=== PATIENT | male | born 1995 | race Caucasian/White ===

== ENCOUNTER 2019-12-20 07:31 | Emergency (ER) | payer SELFPAY ==
[~2019-12-20] VITALS: Ht 177.8 cm; Wt 70.3 kg
[~2019-12-20 07:31] MED LIST: HYDACE5 PO; Keflex500 MG PO; Norco 5-325 Ta1 EACH PO; Percocet 5-3251 EACH PO; RXHYDACE PO; Zofran Odt4 MG SL
[2019-12-20] MEDS ORDERED: PRED20 PO (08:06)
[2019-12-20] MEDS ORDERED: ALBU2.5V5 INH (08:06)
[2019-12-20] MEDS ORDERED: ALBU90OI INH (08:06)
[2019-12-20] MEDS ORDERED: IBUP800 PO (08:26)
[2019-12-20] MEDS ORDERED: CEPH500 PO (08:27)
== END 2019-12-20 08:51 | disposition home or self-care (01) ==
LOC: ER 07:31
DX: M67.432 Ganglion, left wrist (principal); J45.901 Unspecified asthma with (acute) exacerbation
CPT/HCPCS: 73070; 99283-25

== ENCOUNTER 2019-12-29 07:03 | Emergency (ER) | payer BC ==
[~2019-12-29] VITALS: Ht 177.8 cm; Wt 72.6 kg
[~2019-12-29 07:03] MED LIST changes: +ALBU2.5V5 INH; +ALBU90OI INH; +CEPH500 PO; +IBUP800 PO; +PRED20 PO
[2019-12-29] MEDS ORDERED: IBU600 M1 PO (07:48)
== END 2019-12-29 07:56 | disposition home or self-care (01) ==
LOC: ER 07:03
DX: M77.9 Enthesopathy, unspecified (principal); J45.909 Unspecified asthma, uncomplicated; F41.9 Anxiety disorder, unspecified; F17.200 Nicotine dependence, unspecified, uncomplicated; Z79.899 Other long term (current) drug therapy
CPT/HCPCS: 73090; 99283-25

== ENCOUNTER 2024-04-18 21:15 | Emergency (ER) | payer OTHER ==
[~2024-04-18] VITALS: Ht 177.8 cm; Wt 77.1 kg
[~2024-04-18 21:15] MED LIST changes: +AMOCLA875 PO; +IBU600 M1 PO
[2024-04-18 23:33] VITALS: BP 150/85
== END 2024-04-18 23:37 | disposition home or self-care (01) ==
LOC: ER 21:15
DX: M79.602 Pain in left arm (principal); W50.0XXA Accidental hit or strike by another person, initial encounter; J45.909 Unspecified asthma, uncomplicated; F17.210 Nicotine dependence, cigarettes, uncomplicated
CPT/HCPCS: 99283